=== PATIENT | female | born 1945 | race African-American/Black ===

== ENCOUNTER 2019-03-11 21:31 | Emergency (ER) | payer MEDICARE, OTHER ==
[~2019-03-11] VITALS: Ht 157.5 cm; Wt 52.6 kg
[2019-03-11] MEDS ORDERED: TDAP DIPH,PERTUSS,TET VAC/PF 0.5 ML DISP.SYRIN IM ONE ×2 (21:55→22:00)
[2019-03-11] MEDS ORDERED: ACETAMINOPHEN ES 500 MG TABLET ONE (21:55)
[2019-03-11] MEDS ORDERED: CEphaleXIN 500 MG CAPSULE ONE (21:55)
[2019-03-11] MEDS ORDERED: ACETAMINOPHEN ES 500 MG TABLET PO ONE (22:00)
[2019-03-11] MEDS ORDERED: CEphaleXIN 500 MG CAPSULE PO ONE (22:00)
--- NOTE | 2019-03-11 22:07 | NUR ---
Patient discharged to home in stable conditon. Written and verbal after care instructions given. Patient verbalizes understanding of instructions. Pt walked out of ER in stable gait with family. Vital signs stable. No acute distress noted.
[2019-03-11 22:08] VITALS: BP 147/88
== END 2019-03-11 22:08 | disposition home or self-care (01) ==
LOC: ER 21:35
DX: S02.2XXA Fracture of nasal bones, initial encounter for closed fracture (principal); E11.9 Type 2 diabetes mellitus without complications; W01.0XXA Fall on same level from slipping, tripping and stumbling without subsequent striking against object, initial encounter; Y93.89 Activity, other specified; Y92.89 Other specified places as the place of occurrence of the external cause; Y99.8 Other external cause status
CPT/HCPCS: 90715; A4663; A9150